=== PATIENT | female | born 1970 | race Caucasian/White ===

== ENCOUNTER 2018-07-21 18:18 | Emergency (ER) | payer BC, OTHER ==
[~2018-07-21] VITALS: Ht 165.1 cm; Wt 81.7 kg
[~2018-07-21 18:18] MED LIST: FLEXERIL PO; HYDROCODON-ACE1 EAC8 PO; IBUPROFEN 800800 MG PO; LEVAQUIN 500 M500 M2 PO; LEXAPRO20 MG PO; PROVENTIL
[2018-07-21] MEDS ORDERED: SYNTHROID100 MC1 PO (18:33)
[2018-07-21 19:54] LABS: ABSOLUTE BASOPHILS 0.1 thou/uL (0.0-0.2); ABSOLUTE EOSINOPHILS 0.1 thou/uL (0.0-0.7); ABSOLUTE LYMPHOCYTES 1.9 thou/uL (0.8-5.3); ABSOLUTE MONOCYTES 0.6 thou/uL (0.0-1.2); ABSOLUTE NEUTROPHILS 10.6 thou/uL (1.6-8.1); BASOPHILS 0.4 %; EOSINOPHILS 0.7 %; HEMATOCRIT 37.6 % (37.0-47.0); HEMOGLOBIN 12.7 gm/dL (12.0-15.0); MCH 30.5 pg (26.0-34.0); MCHC 33.8 g/dL (28.0-37.0); MCV 90.1 fL (80.0-100.0); MONOCYTES 4.6 %; MPV 7.5 fl. (7.2-11.1); NUCLEATED RBCS 0 /100WBC; PLATELET COUNT* 393 thou/uL (150-400); POLYS 80.3 %; RBC 4.17 mil/uL (4.20-5.00); RDW-CV 13.9 % (10.5-14.5); WBC 13.3 thou/uL (4.0-11.0)
[2018-07-21 20:13] LABS: ALBUMIN 3.7 g/dL (3.4-5.0); ALKALINE PHOSPHATASE 54 U/L (46-116); ANION GAP 12 mmol/L (7-16); BUN 11 mg/dL (7-18); CALCIUM 9.1 mg/dL (8.5-10.1); CHLORIDE 103 mmol/L (98-107); CO2 25 mmol/L (21-32); CREATININE 0.8 mg/dL (0.6-1.3); GLUCOSE 114 mg/dL (70-99); LIPASE 110 U/L (73-393); MAGNESIUM 1.9 mg/dL (1.8-2.4); NT-PRO BRAIN NAT PEPTIDE 35 pg/mL (<300); POTASSIUM 3.5 mmol/L (3.5-5.1); SGOT 16 U/L (15-37); SGPT 20 U/L (30-65); SODIUM 140 mmol/L (136-145); TOTAL BILIRUBIN 0.4 mg/dL (<0.1-1.0); TOTAL PROTEIN 7.6 g/dL (6.4-8.2); TROPONIN-I LEVEL <0.06 ng/mL (<0.06)
[2018-07-21 20:44] VITALS: BP 142/82
--- NOTE | 2018-07-22 09:12 | EKG ---
[place] [address] ELECTROCARDIOGRAM REPORT Name: MICHAELSHANIARADHA Ahsan Room: [facility]#: [id number] Admission: 07/21/18 Attend Phys: Discharge: 07/21/18 Date of : 74 Report #: [id number] THIS REPORT FOR: //name// 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 A : 1970 Requested By: Yves Payton Order Number: [id number] MD: Benjamin Dietz Measurements Intervals [place] Rate: 72 P: 52 NM: 188 QRS: 41 QRSD: 102 T: 59 QT: 412 QTc: 451 Interpretive Statements Sinus rhythm Borderline T abnormalities, anterior leads Compared to ECG 04/14/2013 11:17:34 no change Electronically Signed On 07-22-2018 9:12:37 CDT by Benjamin Dietz [email or web address] <ELECTRONICALLY SIGNED> By: Benjamin Dietz MD, [facility] 07/22/18 0912 D: 03/1823 23 Benjamin Dietz MD, FACC /EPI
== END 2018-07-21 20:44 | disposition home or self-care (01) ==
LOC: M.ERS 18:18
PROVIDERS: Emergency Medicine Emergency Medical Services
DX: F41.9 Anxiety disorder, unspecified (principal); R07.89 Other chest pain; J45.909 Unspecified asthma, uncomplicated